=== PATIENT | female | born 1975 | race Hispanic/Latino ===

== ENCOUNTER 2021-02-24 09:37 | Inpatient (IN) | payer BC ==
[~2021-02-24] VITALS: Ht 167.6 cm; Wt 90.3 kg
[2021-02-24 00:20] VITALS: BP 114/78
[2021-02-24 10:22] LABS: BASOPHILS % 0.4 % (0.0-1.0); EOSINOPHILS % 0.5 % (0.0-6.0); HEMATOCRIT 37.3 % (34.2-44.1); HEMOGLOBIN 12.4 g/dL (12.0-16.0); LYMPHOCYTES # (AUTO) 1.9 (1.0-3.2); LYMPHOCYTES % 22.9 % (18.0-39.1); MEAN CORPUSCULAR HEMOGLOBIN 28.7 pg (28-32); MEAN CORPUSCULAR HGB CONC 33.2 g/dL (31-35); MEAN CORPUSCULAR VOLUME 86.3 fL (81-99); MONOCYTES # (AUTO) 0.5 (0.2-0.8); MONOCYTES % 5.8 % (4.4-11.3); NEUTROPHILS # (AUTO) 5.8 (2.1-6.9); NEUTROPHILS % 68.2 % (38.7-80.0); PLATELET COUNT 338 x10e3/uL (140-360); RED BLOOD COUNT 4.32 x10e6/uL (3.6-5.1); RED CELL DISTRIBUTION WIDTH 11.9 % (11.7-14.4)
[2021-02-24 10:41] LABS: ALBUMIN 2.8 g/dL (3.5-5.0); ALBUMIN/GLOBULIN RATIO 0.6 (0.8-2.0); ANION GAP 17.3 mmol/L (8-16); CALCIUM 8.2 mg/dL (8.4-10.2); CREATININE, SERUM 0.75 mg/dL (0.57-1.11); POTASSIUM 3.3 mmol/L (3.5-5.1)
[2021-02-24 10:49] LABS: CREATINE KINASE MB 0.5 ng/mL (0-5.0)
[2021-02-24] MEDS: CEFTRIAXONE 1 GM in SODIUM CHLORIDE 0.9% 50ML 50 ML IV SCH (14:00)
[2021-02-24] MEDS ORDERED: ENOXAPARIN SOD INJ 40 MG/0.4 ML SYR SC ONE (14:03)
[2021-02-24] MEDS ORDERED: SODIUM CHLORIDE 0.9% 250ML 250 ML ONE (14:04)
[2021-02-24] MEDS ORDERED: CEFTRIAXONE 1 GM VIAL ONE (14:04)
[2021-02-24] MEDS ORDERED: PROMETHAZINE HCL (IM) 25 MG/ML VIAL IM ONE (14:17)
[2021-02-24] MEDS ORDERED: PROMETHAZINE 25MG/ NS 50ML (IV) IV ONE (14:45)
[2021-02-24] MEDS: ENOXAPARIN SOD INJ 40 MG/0.4 ML SYR SC SCH (15:00)
[2021-02-24] MEDS: DEXAMETHASONE SOD PHOS 10 MG/1 ML VIAL IV SCH (15:00)
[2021-02-24] MEDS ORDERED: REMDESIVIR 200MG/NS 100ML 200 MG in SODIUM CHLORIDE 0.9% 100 ML 100 ML IV ONE (15:15)
[2021-02-24] MEDS ORDERED: ONDANSETRON HCL INJ 2MG/ML 2ML 2 MG/ML VIAL IV PRN (17:15)
[2021-02-24] MEDS ORDERED: ZOLPIDEM TARTRATE 5 MG TAB PO PRN (21:00)
[2021-02-25] VITALS (8 sets, daily range): BP systolic 101–123; BP diastolic 75–84
[2021-02-25] MEDS ORDERED: GLIMEPIRIDE2 MG PO (05:56)
[2021-02-25] MEDS ORDERED: BUPROPION HCL150 M2 PO (05:56)
[2021-02-25] MEDS ORDERED: atrovastatin PO (05:56)
[2021-02-25] MEDS ORDERED: HYDROCHLOROTHIA25 MG PO (05:56)
[2021-02-25] MEDS ORDERED: LOSARTAN POTASS25 MG PO (05:56)
[2021-02-25] MEDS ORDERED: MONTELUKAST PF (05:56)
[2021-02-25] MEDS ORDERED: VENTOLIN HFA18 GM INH (06:38)
[2021-02-25] MEDS ORDERED: PREDNISONE20 MG PO (06:38)
[2021-02-25] MEDS ORDERED: promethazine dm PO (06:38)
[2021-02-25 07:17] LABS: BASOPHILS % 0.1 % (0.0-1.0); HEMATOCRIT 35.2 % (34.2-44.1); HEMOGLOBIN 11.3 g/dL (12.0-16.0); LYMPHOCYTES # (AUTO) 1.4 (1.0-3.2); LYMPHOCYTES % 17.3 % (18.0-39.1); MEAN CORPUSCULAR HEMOGLOBIN 28.1 pg (28-32); MEAN CORPUSCULAR HGB CONC 32.1 g/dL (31-35); MEAN CORPUSCULAR VOLUME 87.6 fL (81-99); MONOCYTES # (AUTO) 0.5 (0.2-0.8); MONOCYTES % 6.2 % (4.4-11.3); NEUTROPHILS # (AUTO) 6.2 (2.1-6.9); NEUTROPHILS % 75.1 % (38.7-80.0); PLATELET COUNT 338 x10e3/uL (140-360); RED BLOOD COUNT 4.02 x10e6/uL (3.6-5.1)
[2021-02-25 07:32] LABS: ALBUMIN 2.3 g/dL (3.5-5.0); ALBUMIN/GLOBULIN RATIO 0.5 (0.8-2.0); CALCIUM 8.2 mg/dL (8.4-10.2); CREATININE, SERUM 0.71 mg/dL (0.57-1.11)
[2021-02-25] MEDS: DEXAMETHASONE SOD PHOS 10 MG/1 ML VIAL IV SCH (08:52)
[2021-02-25] MEDS: CEFTRIAXONE 1 GM in SODIUM CHLORIDE 0.9% 50ML 50 ML IV SCH (08:52)
[2021-02-25] MEDS ORDERED: SODIUM CHLORIDE 0.9% 250ML 250 ML ONE (08:59)
[2021-02-25] MEDS: ACETAMINOPHEN 325 MG TAB PO PRN (11:30)
[2021-02-25] MEDS: REMDESIVIR 100MG/NS 100ML 100 MG in SODIUM CHLORIDE 0.9% 100 ML 100 ML IV SCH (13:30)
[2021-02-25] MEDS: ENOXAPARIN SOD INJ 40 MG/0.4 ML SYR SC SCH (16:51)
[2021-02-26] VITALS (8 sets, daily range): BP systolic 98–130; BP diastolic 63–83
[2021-02-26 04:51] LABS: BASOPHILS % 0.2 % (0.0-1.0); EOSINOPHILS % 0.1 % (0.0-6.0); HEMATOCRIT 33.7 % (34.2-44.1); HEMOGLOBIN 11.2 g/dL (12.0-16.0); LYMPHOCYTES # (AUTO) 1.9 (1.0-3.2); LYMPHOCYTES % 14.7 % (18.0-39.1); MEAN CORPUSCULAR HEMOGLOBIN 28.6 pg (28-32); MEAN CORPUSCULAR HGB CONC 33.2 g/dL (31-35); MONOCYTES # (AUTO) 0.7 (0.2-0.8); MONOCYTES % 5.3 % (4.4-11.3); NEUTROPHILS # (AUTO) 10.2 (2.1-6.9); NEUTROPHILS % 78.3 % (38.7-80.0); PLATELET COUNT 389 x10e3/uL (140-360); RED BLOOD COUNT 3.92 x10e6/uL (3.6-5.1)
[2021-02-26 05:11] LABS: ALBUMIN 2.3 g/dL (3.5-5.0); ALBUMIN/GLOBULIN RATIO 0.5 (0.8-2.0); ANION GAP 12.8 mmol/L (8-16); CALCIUM 8.1 mg/dL (8.4-10.2); CREATININE, SERUM 0.72 mg/dL (0.57-1.11); POTASSIUM 3.8 mmol/L (3.5-5.1)
[2021-02-26] MEDS: CEFTRIAXONE 1 GM in SODIUM CHLORIDE 0.9% 50ML 50 ML IV SCH (08:23)
[2021-02-26] MEDS: DEXAMETHASONE SOD PHOS 10 MG/1 ML VIAL IV SCH (08:23)
[2021-02-26] MEDS: ACETAMINOPHEN 325 MG TAB PO PRN (12:56)
[2021-02-26] MEDS: REMDESIVIR 100MG/NS 100ML 100 MG in SODIUM CHLORIDE 0.9% 100 ML 100 ML IV SCH (13:00)
[2021-02-26] MEDS: HYDROCODONE/APAP 5MG-325MG TAB PO PRN (14:55)
[2021-02-26] MEDS: ENOXAPARIN SOD INJ 40 MG/0.4 ML SYR SC SCH (17:03)
[2021-02-26] MEDS: ATORVASTATIN 20 MG TAB PO SCH (20:10)
[2021-02-26] MEDS: ALPRAZOLAM 0.25 MG TAB PO PRN (22:03)
[2021-02-27] VITALS (8 sets, daily range): BP systolic 104–125; BP diastolic 69–81
[2021-02-27 05:38] LABS: BASOPHILS % 0.2 % (0.0-1.0); EOSINOPHILS # (AUTO) 0.1 (0.0-0.4); EOSINOPHILS % 0.9 % (0.0-6.0); HEMOGLOBIN 11.2 g/dL (12.0-16.0); LYMPHOCYTES # (AUTO) 2.6 (1.0-3.2); MEAN CORPUSCULAR HEMOGLOBIN 28.1 pg (28-32); MEAN CORPUSCULAR HGB CONC 32.9 g/dL (31-35); MEAN CORPUSCULAR VOLUME 85.4 fL (81-99); MONOCYTES # (AUTO) 0.7 (0.2-0.8); MONOCYTES % 5.3 % (4.4-11.3); NEUTROPHILS # (AUTO) 9.2 (2.1-6.9); NEUTROPHILS % 71.3 % (38.7-80.0); PLATELET COUNT 426 x10e3/uL (140-360); RED BLOOD COUNT 3.98 x10e6/uL (3.6-5.1); RED CELL DISTRIBUTION WIDTH 11.9 % (11.7-14.4)
[2021-02-27 06:21] LABS: ALBUMIN 2.2 g/dL (3.5-5.0); ALBUMIN/GLOBULIN RATIO 0.5 (0.8-2.0); ANION GAP 14.9 mmol/L (8-16); CREATININE, SERUM 0.64 mg/dL (0.57-1.11); POTASSIUM 3.9 mmol/L (3.5-5.1)
[2021-02-27] MEDS: LOSARTAN POTASSIUM 25 MG TAB PO SCH (09:00)
[2021-02-27] MEDS: DEXAMETHASONE SOD PHOS 10 MG/1 ML VIAL IV SCH (09:37)
[2021-02-27] MEDS: HYDROCHLOROTHIAZIDE 25 MG TAB PO SCH (09:39)
[2021-02-27] MEDS: GLIMEPIRIDE 2 MG TAB PO SCH (09:39)
[2021-02-27] MEDS: CEFTRIAXONE 1 GM in SODIUM CHLORIDE 0.9% 50ML 50 ML IV SCH (09:39)
[2021-02-27] MEDS: HOME MEDICATION--PATIENTS OWN PO SCH (09:42)
[2021-02-27] MEDS ORDERED: DEXTROSE 50% SYRINGE 50 ML IV PRN (09:45)
[2021-02-27] MEDS: INSULIN LISPRO 100 UNIT/1 ML 3ML VIAL SQ SCH ×3 (11:54→20:18)
[2021-02-27] MEDS: HYDROCODONE/APAP 5MG-325MG TAB PO PRN (12:26)
[2021-02-27] MEDS: REMDESIVIR 100MG/NS 100ML 100 MG in SODIUM CHLORIDE 0.9% 100 ML 100 ML IV SCH (14:37)
[2021-02-27] MEDS: ENOXAPARIN SOD INJ 40 MG/0.4 ML SYR SC SCH (17:22)
[2021-02-27] MEDS: ALPRAZOLAM 0.25 MG TAB PO PRN (20:45)
[2021-02-27] MEDS: ATORVASTATIN 20 MG TAB PO SCH (20:45)
[2021-02-28] VITALS (8 sets, daily range): BP systolic 92–120; BP diastolic 74–78
[2021-02-28 05:56] LABS: BASOPHILS % 0.2 % (0.0-1.0); EOSINOPHILS # (AUTO) 0.1 (0.0-0.4); EOSINOPHILS % 0.8 % (0.0-6.0); HEMATOCRIT 37.1 % (34.2-44.1); LYMPHOCYTES # (AUTO) 2.4 (1.0-3.2); LYMPHOCYTES % 21.5 % (18.0-39.1); MEAN CORPUSCULAR HEMOGLOBIN 28.1 pg (28-32); MEAN CORPUSCULAR HGB CONC 32.3 g/dL (31-35); MEAN CORPUSCULAR VOLUME 86.9 fL (81-99); MONOCYTES # (AUTO) 0.6 (0.2-0.8); NEUTROPHILS # (AUTO) 7.9 (2.1-6.9); NEUTROPHILS % 69.3 % (38.7-80.0); PLATELET COUNT 471 x10e3/uL (140-360); RED BLOOD COUNT 4.27 x10e6/uL (3.6-5.1); RED CELL DISTRIBUTION WIDTH 12.1 % (11.7-14.4)
[2021-02-28 06:33] LABS: ANION GAP 14.9 mmol/L (8-16); CALCIUM 8.6 mg/dL (8.4-10.2); CREATININE, SERUM 0.69 mg/dL (0.57-1.11); POTASSIUM 3.9 mmol/L (3.5-5.1)
[2021-02-28] MEDS: INSULIN LISPRO 100 UNIT/1 ML 3ML VIAL SQ SCH ×4 (07:30→21:50)
[2021-02-28] MEDS: GLIMEPIRIDE 2 MG TAB PO SCH (08:00)
[2021-02-28] MEDS: HOME MEDICATION--PATIENTS OWN PO SCH (09:00)
[2021-02-28] MEDS: HYDROCHLOROTHIAZIDE 25 MG TAB PO SCH (09:00)
[2021-02-28] MEDS: DEXAMETHASONE SOD PHOS 10 MG/1 ML VIAL IV SCH (09:00)
[2021-02-28] MEDS: LOSARTAN POTASSIUM 25 MG TAB PO SCH (12:11)
[2021-02-28] MEDS: REMDESIVIR 100MG/NS 100ML 100 MG in SODIUM CHLORIDE 0.9% 100 ML 100 ML IV SCH (14:25)
[2021-02-28] MEDS ORDERED: DEXTROSE 50% SYRINGE 50 ML IV PRN (16:30)
[2021-02-28] MEDS: ENOXAPARIN SOD INJ 40 MG/0.4 ML SYR SC SCH (17:00)
[2021-02-28] MEDS ORDERED: INSULIN LISPRO 100 UNIT/1 ML 3ML VIAL SQ ONE (17:00)
[2021-02-28] MEDS: ALPRAZOLAM 0.25 MG TAB PO PRN (21:09)
[2021-02-28] MEDS: ATORVASTATIN 20 MG TAB PO SCH (21:49)
[2021-03-01] VITALS (7 sets, daily range): BP systolic 96–108; BP diastolic 59–79
[2021-03-01] MEDS: INSULIN LISPRO 100 UNIT/1 ML 3ML VIAL SQ SCH ×3 (07:30→17:22)
[2021-03-01] MEDS: DEXAMETHASONE SOD PHOS 10 MG/1 ML VIAL IV SCH (08:34)
[2021-03-01] MEDS: GLIMEPIRIDE 2 MG TAB PO SCH (08:34)
[2021-03-01] MEDS: HYDROCODONE/APAP 5MG-325MG TAB PO PRN (08:35)
[2021-03-01] MEDS: LOSARTAN POTASSIUM 25 MG TAB PO SCH (08:35)
[2021-03-01] MEDS: HOME MEDICATION--PATIENTS OWN PO SCH (08:35)
[2021-03-01] MEDS: HYDROCHLOROTHIAZIDE 25 MG TAB PO SCH (08:35)
[2021-03-01] MEDS: ENOXAPARIN SOD INJ 40 MG/0.4 ML SYR SC SCH (16:41)
== END 2021-03-01 18:43 | disposition home health service (06) | DRG 177 ==
LOC: ER 10:02 → ERHOLD 10:03 → IMCU 02-25 00:30
PROVIDERS: ADMIT Family Medicine; ATTEND Family Medicine
PROC: 3E0333Z Introduction of Anti-inflammatory into Peripheral Vein, Percutaneous Approach (ICD-10-PCS; principal; 2021-02-24)
PROC: XW033E5 Introduction of Remdesivir Anti-infective into Peripheral Vein, Percutaneous Approach, New Technology Group 5 (ICD-10-PCS; 2021-02-24)
DX: U07.1 COVID-19 (principal); J12.82 Pneumonia due to coronavirus disease 2019; J96.01 Acute respiratory failure with hypoxia; K50.90 Crohn's disease, unspecified, without complications; B19.9 Unspecified viral hepatitis without hepatic coma; I10 Essential (primary) hypertension; E11.9 Type 2 diabetes mellitus without complications; E78.5 Hyperlipidemia, unspecified; Z90.49 Acquired absence of other specified parts of digestive tract; E66.9 Obesity, unspecified; Z68.32 Body mass index [BMI] 32.0-32.9, adult; Z79.84 Long term (current) use of oral hypoglycemic drugs
CPT/HCPCS: 36415; 71045; 80048; 80053; 82550; 82553; 82948; 84484; 85025; 96372; 99284; J0456; J0696; J1100; J1650; J2405; J2550; J7050; U0002